=== PATIENT | female | born 1945 | race Caucasian/White ===

== ENCOUNTER 2019-10-10 16:14 | Emergency (ER) | payer MEDICARE, BC ==
[~2019-10-10] VITALS: Ht 167.6 cm; Wt 55.9 kg
[2019-10-10 16:19] VITALS: BP 155/89
== END 2019-10-10 19:02 | disposition home or self-care (01) ==
LOC: ER 16:15
DX: S12.601A Unspecified nondisplaced fracture of seventh cervical vertebra, initial encounter for closed fracture (principal); R11.0 Nausea; Z88.8 Allergy status to other drugs, medicaments and biological substances; W17.89XA Other fall from one level to another, initial encounter; Y93.89 Activity, other specified; Y92.828 Other wilderness area as the place of occurrence of the external cause; Y99.8 Other external cause status
CPT/HCPCS: 70450; 72125; 72128; 99285

== ENCOUNTER 2019-11-23 08:31 | Day surgery (SDC) | payer MEDICARE, BC ==
[2019-11-23] VITALS (15 sets, daily range): BP systolic 126–155; BP diastolic 73–85
[~2019-11-23] VITALS: Ht 167.6 cm; Wt 55.6 kg
[2019-11-23] MEDS ORDERED: normal saline 1000ml 1,000 ML IV SCH (09:00)
[2019-11-23] MEDS ORDERED: NO HOME MEDS (09:33)
[2019-11-23] MEDS ORDERED: gelatin sponge, absorbable (Gelfoam 12-7MM) sponge TP ONE (10:37)
[2019-11-23] MEDS ORDERED: fentaNYL/PF 50MCG/1 ML 2ML syringe ONE (10:49)
[2019-11-23] MEDS ORDERED: midazolam 2 mg/2 ml injection ONE (10:49)
[2019-11-23] MEDS ORDERED: sodium chloride 0.45% 1,000 ML IV SCH (11:35)
== END 2019-11-23 14:50 | disposition home or self-care (01) ==
LOC: SSTAY O 08:31
PROVIDERS: ATTEND Radiology Vascular & Interventional Radiology
DX: R91.8 Other nonspecific abnormal finding of lung field (principal); C34.92 Malignant neoplasm of unspecified part of left bronchus or lung; Z88.8 Allergy status to other drugs, medicaments and biological substances
CPT/HCPCS: 32405; 71045; 77012; 99152; 99153; J2250; J3010; J7030

== ENCOUNTER 2020-08-26 10:39 | Emergency (ER) | payer MEDICARE, BC ==
[~2020-08-26] VITALS: Ht 165.1 cm; Wt 52.1 kg
[~2020-08-26 10:39] MED LIST: NO HOME MEDS
[2020-08-26 12:27] LABS: BASOPHILS % (AUTO) 0.4 % (0-1); EOSINOPHILS # (AUTO) 0.3 X10'3 (0-0.9); HEMATOCRIT 34.4 % (35.0-45.0); HEMOGLOBIN 11.4 g/dl (12.0-16.0); LYMPHOCYTES # (AUTO) 1.3 X10'3 (1.1-4.8); LYMPHOCYTES % (AUTO) 17.3 % (21-51); MEAN CORPUSCULAR HEMOGLOBIN 30.3 PG (27.0-31.0); MEAN CORPUSCULAR HGB CONC 33.2 g/dL (33.0-36.5); MEAN CORPUSCULAR VOLUME 91.2 FL (78-98); MEAN PLATELET VOLUME 6.3 FL (7.4-10.4); MONOCYTES % (AUTO) 12.8 % (2-12); NEUTROPHILS # (AUTO) 5.1 X10'3 (1.8-7.7); NEUTROPHILS % (AUTO) 65.5 % (42-75); PLATELET COUNT 432 X10'3 (140-440); RED BLOOD COUNT 3.78 X10'6 (4.20-5.60); RED CELL DISTRIBUTION WIDTH 14.3 % (11.5-14.5); WHITE BLOOD COUNT 7.8 X10'3 (4.5-11.0)
[2020-08-26 12:45] LABS: ALANINE AMINOTRANSFERASE 190 U/L (12-78); ALBUMIN 3.2 G/DL (3.4-5.0); ALBUMIN/GLOBULIN RATIO 0.9 (1.1-1.5); ALKALINE PHOSPHATASE 198 IU/L (46-116); ANION GAP 8 (8-16); ASPARTATE AMINO TRANSFERASE 93 U/L (10-37); BILIRUBIN,TOTAL 0.2 MG/DL (0.1-1.0); BLOOD UREA NITROGEN 28 MG/DL (7-18); BUN/CREATININE RATIO 27.7 (6.6-38.0); CALCIUM 8.9 MG/DL (8.5-10.1); CHLORIDE 97 MMOL/L (99-107); CREATININE 1.01 MG/DL (0.40-0.90); GLUCOSE 117 MG/DL (70-104); POTASSIUM 4.4 MMOL/L (3.5-5.1); SODIUM 130 MMOL/L (135-145); TOTAL CARBON DIOXIDE 25.4 MMOL/L (24-32); TOTAL PROTEIN 6.8 G/DL (6.4-8.2); eGFR 54 ML/MIN
[2020-08-26 13:03] VITALS: BP 119/80
--- NOTE | 2020-08-26 14:07 | NUR ---
PT REQUESTING CHEST XRAY TO BE SENT TO DR. TERRAZAS AND DR. CUEVA AT [facility]. INFORMED ADMITTING TO SEND XR.
== END 2020-08-26 16:31 | disposition home or self-care (01) ==
LOC: ER 10:39
DX: J18.9 Pneumonia, unspecified organism (principal); R06.02 Shortness of breath; R53.83 Other fatigue; Z88.2 Allergy status to sulfonamides; Z88.1 Allergy status to other antibiotic agents; Z88.0 Allergy status to penicillin
CPT/HCPCS: 36415; 71045; 80053; 85025; 93005; 99285